=== PATIENT | female | born 1990 | race African-American/Black ===

== ENCOUNTER 2024-11-09 22:03 | Emergency (ER) | payer OTHER ==
[2024-11-09 22:17] VITALS: BMI 29.5
[2024-11-09] MEDS ORDERED: ONDANSETRON *ODT* 4 MG TABLET ONE (22:55)
[2024-11-09] MEDS ORDERED: FAMOTIDINE 20 MG TABLET ONE (22:55)
[2024-11-09 22:56] LABS: ABSOLUTE IMMATURE GRANULOCYTES 0.02 x10^3/uL (0.0-0.031); BASOPHILS # 0.05 x10^3/uL (0.01-0.08); EOSINOPHIL % 2.5 % (0.7-5.8); EOSINOPHILS # 0.22 x10^3/uL (0.04-0.36); HEMATOCRIT 38.9 % (34.1-44.9); HEMOGLOBIN 12.8 g/dL (11.2-15.7); MCHC 32.9 g/dl (32.2-35.5); MEAN CELL VOLUME 90.3 fl (79.4-94.8); MEAN PLT VOLUME 9.8 fl (9.4-12.3); MONOCYTE # 0.59 x10^3/uL (0.24-0.86); MONOCYTE % 6.8 % (4.7-12.5); PLATELET COUNT 279 x10^3/uL (182-369); RDW 13.5 % (12.1-16.8)
[2024-11-09] MEDS: ONDANSETRON 4 MG TABLET PO ONE (23:01)
[2024-11-09] MEDS: FAMOTIDINE 20 MG TABLET PO ONE (23:01)
[2024-11-09 23:06] LABS: INR 0.98 (0.83-1.09); PROTHROMBIN TIME (PATIENT) 10.8 SEC (9.7-13.0)
[2024-11-09 23:08] LABS: ACTIVATED PTT 30.7 SECONDS (25.2-36.5)
[2024-11-09 23:17] LABS: POTASSIUM 3.7 mmol/L (3.5-5.1)
[2024-11-09 23:19] LABS: CALCIUM 9.4 mg/dL (8.5-10.1)
[2024-11-09 23:20] LABS: ALBUMIN 3.9 g/dl (3.4-5.0); BLOOD UREA NITROGEN 16.9 mg/dL (7-18)
[2024-11-09 23:23] LABS: CREATININE 1.3 mg/dL (0.55-1.3)
[2024-11-09 23:24] LABS: BILIRUBIN,TOTAL 0.4 mg/dL (0.2-1)
[2024-11-09 23:25] LABS: TOT PROT 7.8 g/dl (6.4-8.2)
[2024-11-10 00:13] LABS: HCV DIAGNOSTIC IN-HOUSE W/RFLX NON-REACTIVE (NONREACTIVE)
[2024-11-10 00:14] LABS: HIV INTERPRETATION NEGATIVE (NEGATIVE)
[2024-11-10 00:37] VITALS: BP 147/92; PULSE 60; RESP 16; TEMP 98.2
== END 2024-11-10 00:37 | disposition home or self-care (01) ==
LOC: JER 22:03
DX: R07.9 Chest pain, unspecified (principal); R06.02 Shortness of breath; R11.0 Nausea; Z63.4 Disappearance and death of family member
CPT/HCPCS: 36415; 71046-TC-FY; 80053; 84484; 85025; 85610; 85730; 86803; 87389; 93005; 93010; 99284-25